=== PATIENT | female | born 1960 | race Caucasian/White ===

== ENCOUNTER 2018-07-16 16:33 | Outpatient (CLI) | payer BC | END 2018-07-16 16:34 | disposition short-term general hospital (02) | LOC: EMS 16:33 | PROVIDERS: ATTEND Surgery | DX: R51 Headache (principal); R11.2 Nausea with vomiting, unspecified; M54.5 Low back pain | CPT/HCPCS: A0425; A0429 ==

== ENCOUNTER 2019-09-05 22:06 | Outpatient (CLI) | payer OTHER | END 2019-09-05 23:59 | disposition critical access hospital (66) | LOC: EMS 22:06 | PROVIDERS: ATTEND Surgery | DX: R11.2 Nausea with vomiting, unspecified (principal); R10.30 Lower abdominal pain, unspecified | CPT/HCPCS: A0425; A0427 ==

== ENCOUNTER 2019-09-05 22:40 | Emergency (ER) | payer OTHER ==
[2019-09-05 22:52] LABS: LEUKOCYTE ESTERASE, URINE LARGE (NEGATIVE); OCCULT BLOOD,URINE MODERATE (NEGATIVE)
[2019-09-05] MEDS ORDERED: MORPHINE 2 MG/ML CARPUJECT IVP STA (22:53)
[2019-09-05] MEDS ORDERED: PROMETHAZINE INJ 25 MG in SODIUM CHLORIDE 0.9% 50 ML IV STA (22:53)
[2019-09-05] MEDS ORDERED: SODIUM CHLORIDE 0.9% 1,000 ML IV STA ×2 (22:53)
--- NOTE | 2019-09-05 22:58 | ED Physician Documentation ---
History of Present Illness - Stated complaint Stated Complaint: AB PX - Chief complaint Chief Complaint: UTI - History obtained from History obtained from: Patient - History of Present Illness Timing: Today Pain level max: 8 Pain level now: 6 - Additonal information Additional information: 59-year-old female presents to the emergency department complaint of lower abdominal pain and vomiting. She states that this started tonight approximately 5 to 6 hours ago. Has gotten gradually worse since that time. Does not have any fevers. States it feels similar to a prior "kidney infection". She states she was septic at that time and spent 3 days at [facility] in [place] last year. She does complain of dysuria. She also has urinary frequency. Nothing makes this better or worse. No changes to her medications. No recent travel. No recent antibiotics. Review of Systems Constitutional: denies: Fever, Chills Throat: denies: Sore throat Cardiac: denies: Chest pain / pressure Respiratory: denies: Cough GI: reports: Abdominal Pain, Nausea, Vomiting Skin: denies: Rash Musculoskeletal: denies: Neck pain, Back pain Neurologic: denies: Headache PD PAST MEDICAL HISTORY - Past Medical History Past Medical History: Yes Cardiovascular: Hypertension - Past Surgical History Past Surgical History: No - Present Medications Home Medications: Ambulatory Orders Medication Instructions Recorded Confirmed Lisinopril [Zestril] 1 tab PO DAILY 09/05/19 09/05/19 Cefdinir 300 mg PO BID #20 capsule 09/06/19 Ondansetron Odt [Zofran] 4 mg TL Q6H PRN #10 tablet 09/06/19 - Allergies Allergies/Adverse Reactions: Allergies Allergy/AdvReac Type Severity Reaction Status Date / Time sulfamethoxazole Allergy Hives Verified 09/05/19 23:24 [From ] trimethoprim [From ] Allergy Hives Verified 09/05/19 23:24 - Living Situation Living Situation: reports: With family Living Arrangement: reports: At home - Social History Does the pt have substance abuse?: No - Family History Family history: reports: Non contributory PD ED PE NORMAL - Vitals Vital signs reviewed: Yes - General General: Alert and oriented X 3, No acute distress, Well developed/nourished - HEENT HEENT: Moist mucous membranes - Neck Neck: Supple, no meningeal sign - Cardiac Cardiac: RRR, Strong equal pulses - Respiratory Respiratory: No respiratory distress, Clear bilaterally - Abdomen Abdomen: Soft, Non tender, Non distended - Derm Derm: Warm and dry - Neuro Neuro: Alert and oriented X 3 - Psych Psych: Normal mood, Normal affect Results - Vitals Vitals: Vital Signs - 24 hr 09/05/19 09/05/19 09/06/19 22:51 23:46 00:38 Temperature 36.9 C Heart Rate 124 H 108 H 99 Respiratory 20 12 Rate Blood Pressure 162/102 H 148/103 H 106/73 O2 Saturation 94 91 L 91 L Oxygen O2 Source Room air - Labs Labs: Laboratory Tests 09/05/19 09/05/19 09/05/19 22:44 22:54 22:54 WBC 14.2 H RBC 4.96 Hgb 14.1 Hct 43.0 MCV 86.7 MCH 28.4 MCHC 32.8 RDW 13.1 Plt Count 281 MPV 8.4 Neut # (Auto) 11.3 H Lymph # (Auto) 1.7 [place] # (Auto) 1.0 Eos # (Auto) 0.1 Baso # (Auto) 0.1 Absolute Nucleated RBC 0.00 Nucleated RBC % 0.0 Sodium 139 Potassium 3.5 Chloride 104 Carbon Dioxide 26 Anion Gap 9.0 BUN 18 Creatinine 0.8 Estimated GFR (MDRD) 74 L Glucose 105 H Lactic Acid Calcium 9.1 Total Bilirubin 0.6 AST 23 ALT 38 Alkaline Phosphatase 75 Total Protein 7.0 Albumin 4.3 Globulin 2.7 Albumin/Globulin Ratio 1.6 Lipase 47 Urine Color ORANGE Urine Clarity HAZY Urine pH Ur Specific [place] Urine Protein Urine Glucose (UA) Urine Ketones Urine Occult Blood MODERATE H Urine Nitrite Urine Bilirubin NEGATIVE Urine Urobilinogen Ur Leukocyte Esterase LARGE H Urine RBC 6-10 H Urine WBC >25 H Ur Squamous Epith Cells RARE Squamous Urine Bacteria Rare Ur Microscopic Review INDICATED Urine Culture Comments INDICATED 09/05/19 22:54 WBC RBC Hgb Hct MCV MCH MCHC RDW Plt Count MPV Neut # (Auto) Lymph # (Auto) [place] # (Auto) Eos # (Auto) Baso # (Auto) Absolute Nucleated RBC Nucleated RBC % Sodium Potassium Chloride Carbon Dioxide Anion Gap BUN Creatinine Estimated GFR (MDRD) Glucose Lactic Acid 1.6 Calcium Total Bilirubin AST ALT Alkaline Phosphatase Total Protein Albumin Globulin Albumin/Globulin Ratio Lipase Urine Color Urine Clarity Urine pH Ur Specific [place] Urine Protein Urine Glucose (UA) Urine Ketones Urine Occult Blood Urine Nitrite Urine Bilirubin Urine Urobilinogen Ur Leukocyte Esterase Urine RBC Urine WBC Ur Squamous Epith Cells Urine Bacteria Ur Microscopic Review Urine Culture Comments - Rads (name of study) CT abdomen pelvis Radiology: Prelim report reviewed, EMP read contemporaneously, See rad report (1. No acute inflammatory or obstructive process seen in the abdomen or pelvis. 2. Colonic diverticulosis. 3. Cholelithiasis. 4. Post hysterectomy. ) PD MEDICAL DECISION MAKING - ED course Complexity details: reviewed results, re-evaluated patient, considered differential, d/w patient ED course: Patient feels much better after IV fluids, pain medication and nausea medication. We will treat as possible early pyelonephritis. No evidence of sepsis. Heart rate down to the 90s. Mild leukocytosis. Normal lactate. Blood cultures were drawn as well. Given IV Rocephin. Patient is well-appearing, nontoxic. Afebrile. Patient counseled regarding signs and symptoms for which I believe and urgent re-evaluation would be necessary. Patient with good understanding of and agreement to plan and is comfortable going home at this time This document was made in part using voice recognition software. While efforts are made to proofread this document, sound alike and grammatical errors may occur. Departure - Departure Disposition: 01 Home, Self Care Clinical Impression: Vomiting Qualifiers: Vomiting type: unspecified Vomiting Intractability: non-intractable Nausea presence: with nausea Qualified Code(s): R11.2 - Nausea with vomiting, unspecified Urinary tract infection Qualifiers: Urinary tract infection type: acute cystitis Hematuria presence: without hematuria Qualified Code(s): N30.00 - Acute cystitis without hematuria Condition: Good Instructions: ED Nausea Vomiting, ED UTI Cystitis Female Follow-Up: your,doctor in 1 week if not better [Other] Prescriptions: Cefdinir 300 mg PO BID #20 capsule Ondansetron Odt [Zofran] 4 mg TL Q6H PRN #10 tablet PRN Reason: Nausea / Vomiting Comments: Take all antibiotics until gone. Return if you worsen. Follow-up with your doctor if not better within 1 week. Return for uncontrolled pain, vomiting and/or fever.
[2019-09-05 23:01] LABS: BASOPHILS # (AUTO) 0.1 10^3/uL (0.0-0.1); BASOPHILS % (AUTO) 0.5 %; EOSINOPHILS # (AUTO) 0.1 10^3/uL (0.0-0.7); EOSINOPHILS % (AUTO) 0.6 %; HGB - HEMOGLOBIN 14.1 g/dL (12.0-16.0); LYMPHOCYTES # (AUTO) 1.7 10^3/uL (1.5-3.5); LYMPHOCYTES % (AUTO) 12.1 %; MEAN CORPUSCULAR HEMOGLOBIN 28.4 pg (27.0-31.0); MEAN CORPUSCULAR HGB CONC 32.8 g/dL (32.0-36.0); MEAN CORPUSCULAR VOLUME 86.7 fL (81.0-99.0); MEAN PLATELET VOLUME 8.4 fL (7.9-10.8); MONOCYTES % (AUTO) 6.8 %; NEUTROPHILS # (AUTO) 11.3 10^3/uL (1.5-6.6); NEUTROPHILS % (AUTO) 79.6 %; PLT - PLATELET COUNT 281 10^3/uL (130-450); RED BLOOD COUNT 4.96 10^6/uL (4.20-5.40); RED CELL DISTRIBUTION WIDTH 13.1 % (12.0-15.0); WHITE BLOOD COUNT 14.2 x10^3/uL (4.8-10.8)
[2019-09-05 23:06] LABS: BILIRUBIN,URINE NEGATIVE (NEGATIVE); CLARITY,URINE HAZY (CLEAR); ICTOTEST,URINE NEGATIVE
[2019-09-05 23:08] LABS: BACTERIA,URINE Rare /HPF (None Seen); SQUAMOUS EPITHELIAL CELL,UR RARE Squamous (<= Few)
[2019-09-05 23:16] LABS: ALBUMIN 4.3 g/dL (3.2-5.5); ALBUMIN/GLOBULIN RATIO 1.6 (1.0-2.2); BILIRUBIN,TOTAL 0.6 mg/dL (0.2-1.0); CALCIUM 9.1 mg/dL (8.5-10.3); CREATININE 0.8 mg/dL (0.4-1.0)
[2019-09-05] MEDS ORDERED: IOVERSOL 320 100 ML VIAL IVP ONE (23:25)
[2019-09-05] MEDS ORDERED: cefTRIAXone 1 GM VIAL IVP STA (23:39)
[2019-09-06] MEDS ORDERED: IOVERSOL 320 100 ML VIAL IVP ONE (00:24)
--- NOTE | 2019-09-06 00:46 | CT Report ---
Reason: lower abd pain, vomiting Procedure Date: 09/06/2019 Accession Number: [id number] / [id number] Procedure: CT - Abdomen/Pelvis W CPT Code: Final Report FULL RESULT: EXAM: CT ABDOMEN AND PELVIS EXAM DATE: 09/06/2019 12:25 AM. CLINICAL HISTORY: Lower abdominal pain, vomiting. COMPARISONS: None. TECHNIQUE: Routine helical CT imaging was performed through the abdomen and pelvis. IV contrast: Yes . Enteric contrast: No . Reconstructions: Coronal and sagittal. In accordance with CT protocol optimization, one or more of the following dose reduction techniques were utilized for this exam: automated exposure control, adjustment of mA and/or KV based on patient size, or use of iterative reconstructive technique. FINDINGS: Lung Bases: Unremarkable. Liver: Unremarkable. No suspicious masses. Gallbladder/Bile Ducts: Cholelithiasis without cholecystitis or biliary ductal dilatation. Spleen: Unremarkable. Pancreas: Unremarkable. Adrenal Glands: Unremarkable. Kidneys: Unremarkable. No suspicious masses or hydronephrosis. Peritoneal Cavity/Bowel: No bowel obstruction or inflammatory process seen. No free air or significant free fluid. No masses or adenopathy. The appendix is normal. No excessive stool burden. Colonic diverticulosis. Pelvic Organs: Post hysterectomy with no adnexal masses seen. The bladder appears within normal limits. Vasculature: No aneurysms or other significant abnormality. Bones: No acute or aggressive appearing abnormality. Mild degenerative anterolisthesis of L4 on L5. Other: None. IMPRESSION: 1. No acute inflammatory or obstructive process seen in the abdomen or pelvis. 2. Colonic diverticulosis. 3. Cholelithiasis. 4. Post hysterectomy. RADIA
[2019-09-06 01:40] VITALS: BP 111/81
== END 2019-09-06 02:02 | disposition home or self-care (01) ==
LOC: EDUNIT# → ED 22:40
DX: N30.00 Acute cystitis without hematuria (principal); B96.20 Unspecified Escherichia coli [E. coli] as the cause of diseases classified elsewhere; R11.2 Nausea with vomiting, unspecified; K80.20 Calculus of gallbladder without cholecystitis without obstruction; I10 Essential (primary) hypertension; Z90.710 Acquired absence of both cervix and uterus
CPT/HCPCS: 36415; 74177; 80053; 81001; 83605; 83690; 85025; 87040; 87086; 87181; 96361; 96365; 96375; 99284; J7040; Q9967; 81003

== ENCOUNTER 2019-09-10 18:20 | Emergency (ER) | payer OTHER ==
[2019-09-10 19:12] LABS: BILIRUBIN,URINE NEGATIVE (NEGATIVE); GLUCOSE, URINE (UA) NEGATIVE (NEGATIVE); KETONES,URINE (UA) NEGATIVE (NEGATIVE); LEUKOCYTE ESTERASE, URINE NEGATIVE (NEGATIVE); NITRITE,URINE NEGATIVE (NEGATIVE); OCCULT BLOOD,URINE NEGATIVE (NEGATIVE); PH,URINE 5.5 PH (5.0-7.5); PROTEIN,URINE NEGATIVE (NEGATIVE); UROBILINOGEN,URINE 0.2 (NORMAL) E.U./dL (NORMAL)
[2019-09-10 19:15] LABS: CLARITY,URINE CLEAR (CLEAR)
[2019-09-10 19:16] LABS: BASOPHILS % (AUTO) 1.2 %; EOSINOPHILS % (AUTO) 1.4 %; HGB - HEMOGLOBIN 13.6 g/dL (12.0-16.0); LYMPHOCYTES % (AUTO) 32.4 %; MEAN CORPUSCULAR HEMOGLOBIN 29.9 pg (27.0-31.0); MEAN CORPUSCULAR HGB CONC 33.3 g/dL (32.0-36.0); MEAN CORPUSCULAR VOLUME 89.9 fL (81.0-99.0); MEAN PLATELET VOLUME 8.3 fL (7.9-10.8); MONOCYTES % (AUTO) 7.3 %; NEUTROPHILS % (AUTO) 57.3 %; PLT - PLATELET COUNT 329 10^3/uL (130-450); RED BLOOD COUNT 4.55 10^6/uL (4.20-5.40); RED CELL DISTRIBUTION WIDTH 13.1 % (12.0-15.0); WHITE BLOOD COUNT 5.1 x10^3/uL (4.8-10.8)
[2019-09-10 19:22] LABS: ABNORMAL LYMPHS % (MANUAL) 0 %
[2019-09-10 19:30] LABS: ALBUMIN 4.1 g/dL (3.2-5.5); ALBUMIN/GLOBULIN RATIO 1.5 (1.0-2.2); BILIRUBIN,TOTAL 0.7 mg/dL (0.2-1.0); CALCIUM 8.8 mg/dL (8.5-10.3); CREATININE 0.9 mg/dL (0.4-1.0); TOTAL PROTEIN 6.9 g/dL (6.7-8.2)
[2019-09-10 19:36] LABS: BAND NEUTROPHILS % (MANUAL) 1 %; BASOPHILS # (MANUAL) 0.1 10^3/uL (0-0.1); BASOPHILS % (MANUAL) 1 %; DIFFERENTIAL COMMENT MANUAL DIFFERENTIAL; EOSINOPHILS # (MANUAL) 0.1 10^3/uL (0-0.7); LYMPHOCYTES % (MANUAL) 40 %; MONOCYTES # (MANUAL) 0.2 10^3/uL (0.0-1.0); PLATELET ESTIMATE, MANUAL NORMAL (130-450,000) (NORMAL); PLATELET MORPHOLOGY NORMAL APPEARANCE (NORMAL); RBC MORPHOLOGY (MULTIPLE) NORMAL APPEARANCE (NORMAL)
[2019-09-10] MEDS ORDERED: ONDANSETRON 4 MG/2 ML VIAL IVP STA (20:01)
[2019-09-10] MEDS ORDERED: MORPHINE 2 MG/ML CARPUJECT IVP STA (20:01)
--- NOTE | 2019-09-10 20:06 | ED Physician Documentation ---
History of Present Illness - Stated complaint Stated Complaint: FEM /ABD PX - Chief complaint Chief Complaint: UTI - History obtained from History obtained from: Patient - History of Present Illness Timing: Today Pain level max: 5 Pain level now: 5 - Additonal information Additional information: 59-year-old female presents to the emergency department stating that she was recently treated for UTI. Changed to nitrofurantoin yesterday. . She states that she is not feeling well today. Just feels generally unwell. Had chills earlier. Now resolved. No fevers. No vomiting. No diarrhea or constipation. Had urosepsis a year ago. Review of Systems Constitutional: reports: Chills. denies: Fever Cardiac: denies: Chest pain / pressure Respiratory: denies: Cough GI: reports: Nausea. denies: Vomiting Skin: denies: Rash Musculoskeletal: denies: Neck pain, Back pain Neurologic: denies: Headache PD PAST MEDICAL HISTORY - Past Medical History Cardiovascular: Hypertension Respiratory: None Neuro: None, Migraines Endocrine/Autoimmune: None GI: GERD BROADBAND ENGINEER: None : Chronic bladder infection HEENT: Dental implants Psych: None Musculoskeletal: Osteoporosis Derm: None - Past Surgical History Past Surgical History: No /BROADBAND ENGINEER: Hysterectomy - Present Medications Home Medications: Ambulatory Orders Medication Instructions Recorded Confirmed Lisinopril [Zestril] 1 tab PO DAILY 09/05/19 09/05/19 Cefdinir 300 mg PO BID #20 capsule 09/06/19 Omeprazole 1 cap PO DAILY 09/06/19 09/06/19 Ondansetron Odt [Zofran] 4 mg TL Q6H PRN #10 tablet 09/06/19 Sumatriptan Succinate [Imitrex] 100 mg PO PRN PRN 09/06/19 09/06/19 Ondansetron Odt [Zofran] 4 mg TL Q6H PRN #10 tablet 09/10/19 - Allergies Allergies/Adverse Reactions: Allergies Allergy/AdvReac Type Severity Reaction Status Date / Time sulfamethoxazole Allergy Hives Verified 09/05/19 23:24 [From ] trimethoprim [From ] Allergy Hives Verified 09/05/19 23:24 - Social History Does the pt smoke?: No Smoking Status: Never smoker Does the pt drink ETOH?: Yes Does the pt have substance abuse?: No - Immunizations Immunizations are current?: Yes - POLST Patient has POLST: No PD ED PE NORMAL - Vitals Vital signs reviewed: Yes - General General: Alert and oriented X 3, No acute distress, Well developed/nourished - HEENT HEENT: Moist mucous membranes - Neck Neck: Supple, no meningeal sign - Cardiac Cardiac: RRR, Strong equal pulses - Respiratory Respiratory: No respiratory distress, Clear bilaterally - Abdomen Abdomen: Soft, Non tender, Non distended - Back Back: No CVA TTP - Derm Derm: Warm and dry - Extremities Extremities: No edema - Neuro Neuro: Alert and oriented X 3 - Psych Psych: Normal mood, Normal affect Results - Vitals Vitals: Vital Signs - 24 hr 09/10/19 09/10/19 09/10/19 18:48 18:51 21:21 Temperature 36.8 C Heart Rate 100 98 73 Respiratory 16 16 18 Rate Blood Pressure 143/98 H 145/89 H 144/85 H O2 Saturation 97 98 97 Oxygen O2 Source Room air - Labs Labs: Laboratory Tests 09/10/19 09/10/19 09/10/19 18:45 18:45 19:02 WBC 5.1 RBC 4.55 Hgb 13.6 Hct 40.9 MCV 89.9 MCH 29.9 MCHC 33.3 RDW 13.1 Plt Count 329 MPV 8.3 Neut # (Auto) Not Reportable Lymph # (Auto) Not Reportable [place] # (Auto) Not Reportable Eos # (Auto) Not Reportable Baso # (Auto) Not Reportable Absolute Nucleated RBC Not Reportable Total Counted 100 Band Neuts % (Manual) 1 Abnorm Lymph % (Manual) 0 Nucleated RBC % Not Reportable Neutrophils # (Manual) 2.8 Lymphocytes # (Manual) 2.0 Monocytes # (Manual) 0.2 Eosinophils # (Manual) 0.1 Basophils # (Manual) 0.1 Differential Comment MANUAL DIFFERENTIAL Manual Slide Review Indicated WBC Morphology NORMAL APPEARANCE Platelet Estimate NORMAL (130-450,000) Platelet Morphology NORMAL APPEARANCE RBC Morph Micro Appear NORMAL APPEARANCE Sodium 140 Potassium 3.7 Chloride 104 Carbon Dioxide 25 Anion Gap 11.0 BUN 17 Creatinine 0.9 Estimated GFR (MDRD) 65 L Glucose 106 H Lactic Acid Calcium 8.8 Total Bilirubin 0.7 AST 22 ALT 29 Alkaline Phosphatase 67 Total Protein 6.9 Albumin 4.1 Globulin 2.8 Albumin/Globulin Ratio 1.5 Lipase 45 Urine Color YELLOW Urine Clarity CLEAR Urine pH 5.5 Ur Specific [place] 1.010 Urine Protein NEGATIVE Urine Glucose (UA) NEGATIVE Urine Ketones NEGATIVE Urine Occult Blood NEGATIVE Urine Nitrite NEGATIVE Urine Bilirubin NEGATIVE Urine Urobilinogen 0.2 (NORMAL) Ur Leukocyte Esterase NEGATIVE Ur Microscopic Review NOT INDICATED Urine Culture Comments NOT INDICATED 09/10/19 19:18 WBC RBC Hgb Hct MCV MCH MCHC RDW Plt Count MPV Neut # (Auto) Lymph # (Auto) [place] # (Auto) Eos # (Auto) Baso # (Auto) Absolute Nucleated RBC Total Counted Band Neuts % (Manual) Abnorm Lymph % (Manual) Nucleated RBC % Neutrophils # (Manual) Lymphocytes # (Manual) Monocytes # (Manual) Eosinophils # (Manual) Basophils # (Manual) Differential Comment Manual Slide Review WBC Morphology Platelet Estimate Platelet Morphology RBC Morph Micro Appear Sodium Potassium Chloride Carbon Dioxide Anion Gap BUN Creatinine Estimated GFR (MDRD) Glucose Lactic Acid 1.1 Calcium Total Bilirubin AST ALT Alkaline Phosphatase Total Protein Albumin Globulin Albumin/Globulin Ratio Lipase Urine Color Urine Clarity Urine pH Ur Specific [place] Urine Protein Urine Glucose (UA) Urine Ketones Urine Occult Blood Urine Nitrite Urine Bilirubin Urine Urobilinogen Ur Leukocyte Esterase Ur Microscopic Review Urine Culture Comments PD MEDICAL DECISION MAKING - ED course Complexity details: reviewed old records, reviewed results, re-evaluated patient, considered differential, d/w patient ED course: Patient is well-appearing, nontoxic. Afebrile. Labs are normal. No UTI on urinalysis. Pain and nausea well controlled. Unclear etiology of her symptoms. Had a CT scan 5 days ago, we will not repeat this at this time given her benign exam. No leukocytosis. Normal lactate. We will have her continue her antibiotics and follow-up with her doctor. Patient counseled regarding signs and symptoms for which I believe and urgent re-evaluation would be necessary. Patient with good understanding of and agreement to plan and is comfortable going home at this time This document was made in part using voice recognition software. While efforts are made to proofread this document, sound alike and grammatical errors may occur. Departure - Departure Disposition: 01 Home, Self Care Clinical Impression: Urinary tract infection Qualifiers: Urinary tract infection type: acute cystitis Hematuria presence: without hematuria Qualified Code(s): N30.00 - Acute cystitis without hematuria Condition: Good Instructions: ED UTI Cystitis Female Follow-Up: your,doctor in 3 days. [Other] Prescriptions: Ondansetron Odt [Zofran] 4 mg TL Q6H PRN #10 tablet PRN Reason: Nausea / Vomiting Comments: The cause of your symptoms is unclear today. Follow-up with your doctor for further care. Your laboratory testing is improved and your urinalysis does not show any further infection. Finish the antibiotics that were previously given to you. Discharge Date/Time: 09/10/19 21:21
[2019-09-10 21:21] VITALS: BP 144/85
== END 2019-09-10 21:21 | disposition home or self-care (01) ==
LOC: ED 18:20
DX: N30.00 Acute cystitis without hematuria (principal); R11.0 Nausea; I10 Essential (primary) hypertension
CPT/HCPCS: 36415; 80053; 81001; 81003; 83605; 83690; 85025; 87086; 96374; 99284

== ENCOUNTER 2019-10-20 12:26 | Outpatient (CLI) | payer OTHER | END 2019-10-20 12:27 | disposition critical access hospital (66) | LOC: EMS 12:26 | PROVIDERS: ATTEND Surgery | DX: R11.2 Nausea with vomiting, unspecified (principal); R19.7 Diarrhea, unspecified; R30.9 Painful micturition, unspecified; R53.1 Weakness | CPT/HCPCS: A0425; A0427 ==

== ENCOUNTER 2019-10-20 13:02 | Emergency (ER) | payer OTHER ==
[2019-10-20] MEDS ORDERED: SODIUM CHLORIDE 0.9% 1,000 ML IV STA ×3 (13:24→13:30)
[2019-10-20] MEDS ORDERED: MORPHINE 2 MG/ML CARPUJECT IVP STA (13:29)
[2019-10-20] MEDS ORDERED: PROMETHAZINE INJ 25 MG in SODIUM CHLORIDE 0.9% 50 ML IV STA (13:30)
--- NOTE | 2019-10-20 13:34 | ED Physician Documentation ---
PD HPI ABD PAIN - Stated complaint Stated Complaint: N/V/D - Chief complaint Chief Complaint: Abd Pain - History obtained from History obtained from: Patient - History of Present Illness Timing - onset: How many days ago (4-5) Timing - duration: Days Timing - details: Gradual onset Pain level max: 8 Pain level now: 8 Quality: Cramping, Aching, Pain Location: All over / everywhere Improved by: Vomiting Worsened by: Eating Associated symptoms: Nausea, Vomiting, Diarrhea (Patient states she had mild diarrhea through the week, increased today.), Dysuria. No: Fever, Melena, He matochezia, Hematuria, Chest pain, Dizzy Similar symptoms before: Diagnosis (UTI, urosepsis) Recently seen: Not recently seen Review of Systems Ten Systems: 10 systems reviewed and negative Constitutional: reports: Fever (today). denies: Chills Eyes: denies: Decreased vision, Photophobia Ears: denies: Ear pain Nose: denies: Rhinorrhea / runny nose, Congestion Throat: denies: Sore throat Respiratory: denies: Cough GI: reports: Nausea, Vomiting, Diarrhea. 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 : Chronic bladder infection HEENT: Dental implants Psych: None Musculoskeletal: Osteoporosis Derm: None - Past Surgical History Past Surgical History: No /CLERK CARRIER: Hysterectomy - Present Medications Home Medications: Ambulatory Orders Medication Instructions Recorded Confirmed Lisinopril [Zestril] 1 tab PO DAILY 09/05/19 09/05/19 Cefdinir 300 mg PO BID #20 capsule 09/06/19 Omeprazole 1 cap PO DAILY 09/06/19 09/06/19 Ondansetron Odt [Zofran] 4 mg TL Q6H PRN #10 tablet 09/06/19 Sumatriptan Succinate [Imitrex] 100 mg PO PRN PRN 09/06/19 09/06/19 Ondansetron Odt [Zofran] 4 mg TL Q6H PRN #10 tablet 09/10/19 Hydrocodone/Acetaminophen 1 - 2 each PO Q6H PRN #14 tablet 10/20/19 [Hydrocodon-Acetaminophen 5-325] Promethazine [Phenergan] 25 mg PO Q6H PRN #10 tab 10/20/19 - Allergies Allergies/Adverse Reactions: Allergies Allergy/AdvReac Type Severity Reaction Status Date / Time sulfamethoxazole Allergy Hives Verified 10/20/19 13:14 [From ] trimethoprim [From ] Allergy Hives Verified 10/20/19 13:14 - Social History Does the pt smoke?: No Smoking Status: Never smoker Does the pt drink ETOH?: Yes Does the pt have substance abuse?: No - Immunizations Immunizations are current?: Yes - POLST Patient has POLST: No PD ED PE NORMAL - Vitals Vital signs reviewed: Yes - General General: Alert and oriented X 3, No acute distress, Well developed/nourished - HEENT HEENT: PERRL, Other (Dry lips and tongue) - Neck Neck: Supple, no meningeal sign - Cardiac Cardiac: RRR, Strong equal pulses - Respiratory Respiratory: No respiratory distress, Clear bilaterally - Abdomen Abdomen: Soft, Non tender, Non distended - Back Back: No spinal TTP, Other (Right-sided CVA tenderness) - Derm Derm: Warm and dry - Extremities Extremities: No edema, No calf tenderness / cord - Neuro Neuro: Alert and oriented X 3 - Psych Psych: Normal mood, Normal affect Results - Vitals Vitals: Vital Signs - 24 hr 10/20/19 10/20/19 10/20/19 13:10 15:00 17:00 Temperature 37.8 C H 37.7 C H Heart Rate 110 H 111 H 106 H Respiratory 20 21 20 Rate Blood Pressure 159/105 H 161/111 H 140/102 H O2 Saturation 100 100 100 10/20/19 18:16 Temperature 37.7 C H Heart Rate 104 H Respiratory 21 Rate Blood Pressure 122/99 H O2 Saturation 100 Oxygen O2 Source Room air - Labs Labs: Laboratory Tests 10/20/19 10/20/19 10/20/19 13:10 13:40 13:40 WBC 10.0 RBC 5.23 Hgb 15.3 Hct 47.1 H MCV 90.1 MCH 29.3 MCHC 32.5 RDW 12.5 Plt Count 242 MPV 8.5 Neut # (Auto) 9.0 H Lymph # (Auto) 0.3 L [place] # (Auto) 0.6 Eos # (Auto) 0.0 Baso # (Auto) 0.0 Absolute Nucleated RBC 0.00 Nucleated RBC % 0.0 Sodium 141 Potassium 3.9 Chloride 103 Carbon Dioxide 26 Anion Gap 12.0 BUN 18 Creatinine 0.8 Estimated GFR (MDRD) 74 L Glucose 116 H Lactic Acid Calcium 9.3 Phosphorus 3.5 Magnesium 1.8 Total Bilirubin 1.2 H AST 22 ALT 28 Alkaline Phosphatase 62 Total Protein 7.3 Albumin 5.4 Globulin 1.9 L Albumin/Globulin Ratio 2.8 H Lipase 44 Urine Color YELLOW Urine Clarity CLEAR Urine pH 5.5 Ur Specific [place] >=1.030 H Urine Protein NEGATIVE Urine Glucose (UA) NEGATIVE Urine Ketones TRACE Urine Occult Blood NEGATIVE Urine Nitrite NEGATIVE Urine Bilirubin NEGATIVE Urine Urobilinogen 0.2 (NORMAL) Ur Leukocyte Esterase NEGATIVE Ur Microscopic Review NOT INDICATED Urine Culture Comments NOT INDICATED 10/20/19 13:40 WBC RBC Hgb Hct MCV MCH MCHC RDW Plt Count MPV Neut # (Auto) Lymph # (Auto) [place] # (Auto) Eos # (Auto) Baso # (Auto) Absolute Nucleated RBC Nucleated RBC % Sodium Potassium Chloride Carbon Dioxide Anion Gap BUN Creatinine Estimated GFR (MDRD) Glucose Lactic Acid 1.5 Calcium Phosphorus Magnesium Total Bilirubin AST ALT Alkaline Phosphatase Total Protein Albumin Globulin Albumin/Globulin Ratio Lipase Urine Color Urine Clarity Urine pH Ur Specific [place] Urine Protein Urine Glucose (UA) Urine Ketones Urine Occult Blood Urine Nitrite Urine Bilirubin Urine Urobilinogen Ur Leukocyte Esterase Ur Microscopic Review Urine Culture Comments - Rads (name of study) CT abd/pelvis Radiology: Prelim report reviewed, EMP read contemporaneously, See rad report (intestinal obstruction or perforation is seen. There is a finding of relatively radiolucent gallstones within the gallbladder lumen, but no evidence of acute cholecystitis is seen.The source of current abdominal pain and emesis is not found. ) PD MEDICAL DECISION MAKING - ED course Complexity details: reviewed results, re-evaluated patient, considered differential, d/w patient ED course: 59-year-old female with abdominal pain. Unclear etiology. She is not tender in the right upper quadrant. Exam is not consistent with cholecystitis. No diverticulitis or colitis on CT scan. Likely that this is a viral gastroenteritis. She was unable to produce any stool samples here. No diarrhea in the emergency department. Tolerating p.o. without difficulty and feels better after IV fluids. We will continue supportive care and have her follow-up closely with her doctor. Patient counseled regarding signs and symptoms for which I believe and urgent re-evaluation would be necessary. Patient with good understanding of and agreement to plan and is comfortable going home at this time This document was made in part using voice recognition software. While efforts are made to proofread this document, sound alike and grammatical errors may occur. Departure - Departure Disposition: Home, Self Care Clinical Impression: Viral gastroenteritis Condition: Good Instructions: ED Gastroenteritis Viral Follow-Up: your,doctor on Wednesday or Wednesday [Other] Prescriptions: Hydrocodone/Acetaminophen [Hydrocodon-Acetaminophen 5-325] 1 - 2 each PO Q6H PRN #14 tablet PRN Reason: pain Promethazine [Phenergan] 25 mg PO Q6H PRN #10 tab PRN Reason: Nausea / Vomiting Comments: Return if you worsen. Drink plenty of fluids at home. There are no acute findings on your laboratory testing or CT scan. We were unable to obtain a stool sample today, if your symptoms continue, this can be ordered by your doctor. This is likely a viral illness. Do not drink alcohol or drive while on narcotic pain medicine. Note that many narcotic pain relievers also contain tylenol/acetaminophen. Please ensure that your total dose of acetaminophen from all sources does not exceed 3 grams (3000mg) per day. You may constipated on this medication, take a stool softener such as "Colace" twice a day while you are on it. Also recommend a [id number] laxative such as senna or MiraLAX any day that you do not have a bowel movement. If you received narcotic pain medication in the emergency department, do not drive or operate machinery for the next 24 hours. Discharge Date/Time: 10/20/19 18:36
[2019-10-20] MEDS ORDERED: IOVERSOL 320 100 ML VIAL IVP ONE ×2 (13:41→14:32)
[2019-10-20 13:42] LABS: BILIRUBIN,URINE NEGATIVE (NEGATIVE); GLUCOSE, URINE (UA) NEGATIVE (NEGATIVE); KETONES,URINE (UA) TRACE mg/dL (NEGATIVE); LEUKOCYTE ESTERASE, URINE NEGATIVE (NEGATIVE); NITRITE,URINE NEGATIVE (NEGATIVE); OCCULT BLOOD,URINE NEGATIVE (NEGATIVE); PH,URINE 5.5 PH (5.0-7.5); PROTEIN,URINE NEGATIVE (NEGATIVE); UROBILINOGEN,URINE 0.2 (NORMAL) E.U./dL (NORMAL)
[2019-10-20 13:45] LABS: CLARITY,URINE CLEAR (CLEAR)
[2019-10-20 13:46] LABS: BASOPHILS % (AUTO) 0.4 %; EOSINOPHILS % (AUTO) 0.4 %; HGB - HEMOGLOBIN 15.3 g/dL (12.0-16.0); LYMPHOCYTES # (AUTO) 0.3 10^3/uL (1.5-3.5); LYMPHOCYTES % (AUTO) 3.3 %; MEAN CORPUSCULAR HEMOGLOBIN 29.3 pg (27.0-31.0); MEAN CORPUSCULAR HGB CONC 32.5 g/dL (32.0-36.0); MEAN CORPUSCULAR VOLUME 90.1 fL (81.0-99.0); MEAN PLATELET VOLUME 8.5 fL (7.9-10.8); MONOCYTES # (AUTO) 0.6 10^3/uL (0.0-1.0); MONOCYTES % (AUTO) 5.6 %; NEUTROPHILS % (AUTO) 89.9 %; PLT - PLATELET COUNT 242 10^3/uL (130-450); RED BLOOD COUNT 5.23 10^6/uL (4.20-5.40); RED CELL DISTRIBUTION WIDTH 12.5 % (12.0-15.0)
[2019-10-20 14:02] LABS: ALBUMIN 5.4 g/dL (3.2-5.5); ALBUMIN/GLOBULIN RATIO 2.8 (1.0-2.2); BILIRUBIN,TOTAL 1.2 mg/dL (0.2-1.0); CALCIUM 9.3 mg/dL (8.5-10.3); CREATININE 0.8 mg/dL (0.4-1.0); MAGNESIUM 1.8 mg/dL (1.7-2.8); PHOSPHORUS 3.5 mg/dL (2.5-4.6); TOTAL PROTEIN 7.3 g/dL (6.7-8.2)
--- NOTE | 2019-10-20 14:52 | CT Report ---
PROCEDURE: Abdomen/Pelvis W INDICATIONS: diffuse abd pain, vomiting. CONTRAST: IV CONTRAST: Optiray 320 ml: 100 PO CONTRAST: *NO PO CONTRAST TECHNIQUE: After the administration of oral and intravenous contrast, 5 mm thick sections acquired from the diap hragms to the symphysis. 5 mm thick coronal and sagittal reformats were acquired. For radiation dos e reduction, the following was used: automated exposure control, adjustment of mA and/or kV accordin g to patient size. COMPARISON: Prior similar CT 09/06/2019. FINDINGS: Image quality: Excellent. ABDOMEN: Lung bases: Lung bases are clear. Heart size is normal. Solid organs: Liver and spleen are normal in size and enhancement. Gallbladder contains small to mo derate sized radiolucent gallstones which are not associated with definite gallbladder wall inflammat ion and adjacent biliary distention. Pancreas enhances normally. No adrenal nodules. Kidneys demons trate normal size and enhancement, without hydronephrosis. Peritoneum and bowel: Bowel loops demonstrate normal wall thickness and caliber. No free fluid or a ir. Nodes and vessels: No retroperitoneal or mesenteric adenopathy by size criteria. Aorta and inferior vena cava are normal in size. Miscellaneous: No ventral hernias. PELVIS: Genitourinary: Bladder wall thickness is normal. Miscellaneous: No inguinal hernias or adenopathy. Mild diverticulosis is noted but no acute diverti culitis is found. A normal or abnormal appendix could not be located. Bones: No suspicious bony lesions. No vertebral body compression fractures. IMPRESSION: No intestinal obstruction or perforation is seen. There is a finding of relatively radio lucent gallstones within the gallbladder lumen, but no evidence of acute cholecystitis is seen. The s ource of current abdominal pain and emesis is not found. Reviewed by: Salomon Anguiano MD on 10/20/2019 2:50 PM PDT Approved by: Salomon Anguiano MD on 10/20/2019 2:50 PM PDT Station ID: [id number]
[2019-10-20 18:17] VITALS: BP 122/99
== END 2019-10-20 18:36 | disposition home or self-care (01) ==
LOC: EDUNIT# → ED 13:02
DX: A08.4 Viral intestinal infection, unspecified (principal); K80.20 Calculus of gallbladder without cholecystitis without obstruction; I10 Essential (primary) hypertension
CPT/HCPCS: 36415; 74177; 80053; 81003; 83605; 83690; 83735; 84100; 85025; 87040; 96361; 96365; 96375; 99284; 99285; J7040; Q9967; 81001; 87086

== ENCOUNTER 2020-05-08 15:11 | Outpatient (CLI) | payer OTHER ==
--- NOTE | 2020-05-09 09:00 | Mammography Report ---
BILATERAL DIGITAL SCREENING MAMMOGRAM 3D/2D: 05/08/2020 CLINICAL: Routine screening. Comparison is made to exams dated: 10/24/2018 mammogram, 04/20/2017 mammogram, and 03/17/2016 mammogram - [facility]. The tissue of both breasts is predominantly fatty. No significant masses, calcifications, or other findings are seen in either breast. There has been no significant interval change. IMPRESSION: NEGATIVE There is no mammographic evidence of malignancy. A 1 year screening mammogram is recommended. This exam was interpreted at Station ID: [id number]. NOTE: For mammograms, a report in lay terms will be sent to the patient. Approximately 15% of breast malignancies will not be visualized mammographically. In the management of a palpable breast mass, a negative mammogram must not discourage biopsy of a clinically suspicious lesion. Electronically Signed By: Burak Gee M.D., jr/jaspal:05/08/2020 16:38:28 ACR BI-RADS Category 1: Negative 3341F PARENCHYMAL PATTERN: (F) - The breast(s) demonstrate(s) diffuse fatty replacement. BI-RADS CATEGORY: (1) - 1 RECOMMENDATION: (ANNUAL) - Recommend routine annual screening mammography. [id number] 1 year screening LATERALITY: (B)
== END 2020-05-08 15:12 | disposition home or self-care (01) ==
LOC: DI.S 15:11
PROVIDERS: ATTEND Registered Nurse
DX: Z12.31 Encounter for screening mammogram for malignant neoplasm of breast (principal)

== ENCOUNTER 2020-09-13 08:00 | Outpatient (CLI) | payer OTHER ==
[2020-09-13 15:15] LABS: BILIRUBIN,URINE NEGATIVE (NEGATIVE); GLUCOSE, URINE (UA) NEGATIVE (NEGATIVE); KETONES,URINE (UA) NEGATIVE (NEGATIVE); LEUKOCYTE ESTERASE, URINE SMALL (NEGATIVE); NITRITE,URINE POSITIVE (NEGATIVE); OCCULT BLOOD,URINE TRACE-INTA (NEGATIVE); PH,URINE 5.5 PH (5.0-7.5); PROTEIN,URINE NEGATIVE (NEGATIVE); UROBILINOGEN,URINE 0.2 (NORMAL) E.U./dL (NORMAL)
[2020-09-13 15:22] LABS: BACTERIA,URINE Moderate /HPF (None Seen); CLARITY,URINE CLEAR (CLEAR); RBC,URINE 0-5 /HPF (0-5); SQUAMOUS EPITHELIAL CELL,UR FEW Squamous (<= Few)
== END 2020-09-13 23:59 | disposition home or self-care (01) ==
LOC: LAB.S 08:00
PROVIDERS: ATTEND Emergency Medicine
DX: R30.0 Dysuria (principal)
CPT/HCPCS: 81001; 87086; 87181

== ENCOUNTER 2020-11-02 08:00 | Outpatient (CLI) | payer OTHER ==
[2020-11-02 15:57] LABS: BILIRUBIN,URINE NEGATIVE (NEGATIVE); GLUCOSE, URINE (UA) NEGATIVE (NEGATIVE); KETONES,URINE (UA) 15 mg/dL (NEGATIVE); LEUKOCYTE ESTERASE, URINE SMALL (NEGATIVE); NITRITE,URINE NEGATIVE (NEGATIVE); OCCULT BLOOD,URINE NEGATIVE (NEGATIVE); PROTEIN,URINE NEGATIVE (NEGATIVE); UROBILINOGEN,URINE 0.2 (NORMAL) E.U./dL (NORMAL)
[2020-11-02 16:00] LABS: CLARITY,URINE HAZY (CLEAR)
[2020-11-02 16:24] LABS: BACTERIA,URINE Few /HPF (None Seen); RBC,URINE None Seen /HPF (0-5); SQUAMOUS EPITHELIAL CELL,UR NONE SEEN (<= Few)
== END 2020-11-02 23:59 | disposition home or self-care (01) ==
LOC: LAB.S 08:00
PROVIDERS: ATTEND Emergency Medicine
DX: R30.0 Dysuria (principal)
CPT/HCPCS: 81001; 81003; 87086; 87181

== ENCOUNTER 2020-11-17 07:00 | Outpatient (CLI) | payer OTHER | END 2020-11-17 23:59 | disposition home or self-care (01) | LOC: LAB.R 07:00 | PROVIDERS: ATTEND Physician Assistant Medical | DX: N30.90 Cystitis, unspecified without hematuria (principal) | CPT/HCPCS: 87077; 87086; 87181 ==

== ENCOUNTER 2021-03-13 15:19 | Outpatient (CLI) | payer OTHER ==
--- NOTE | 2021-03-14 08:38 | Ultrasound Report ---
PROCEDURE: Retroperitoneal INDICATIONS: RECURRENT UTIs TECHNIQUE: Real-time scanning was performed of the retroperitoneal organs, with image documentation. COMPARISON: Reference is made to the CT abdomen dated October 20, 2019. FINDINGS: RIGHT KIDNEY: Measures 12 cm in length. The renal cortex thickness measures 1.2 cm. Normal contour with mildly increased medullary echogenicity. Preservation of the cortical thickness a nd cortical medullary differentiation. No hydronephrosis. LEFT KIDNEY: Measures 11.5 cm in length. The renal cortex thickness measures 1.4 cm. Normal contour with mildly increased medullary echogenicity. Preservation of the cortical thickness a nd cortical medullary differentiation. No hydronephrosis. Parapelvic hypoechoic areas are seen, likel y reflecting parapelvic cysts. URINARY BLADDER: Prevoid volume: 117 mL. Post void volume: 4.9 mL. Both ureteral jets are visualized. OTHER: None. IMPRESSION: 1.Bilateral mildly increased medullary echogenicity, which is nonspecific but can be seen in the sett ing of medical renal disease. Reviewed by: Tino Fischer MD on 03/14/2021 8:36 AM PST Approved by: Tino Fischer MD on 03/14/2021 8:36 AM PST Station ID: [id number]
== END 2021-03-13 15:20 | disposition home or self-care (01) ==
LOC: DI 15:19
PROVIDERS: ATTEND Physician Assistant
DX: N39.0 Urinary tract infection, site not specified (principal); R93.422 Abnormal radiologic findings on diagnostic imaging of left kidney; R93.421 Abnormal radiologic findings on diagnostic imaging of right kidney

== ENCOUNTER 2021-10-17 08:00 | Outpatient (CLI) | payer OTHER | END 2021-10-17 23:59 | disposition home or self-care (01) | LOC: LAB 08:00 | PROVIDERS: ATTEND Internal Medicine | DX: R30.0 Dysuria (principal) | CPT/HCPCS: 87086 ==

== ENCOUNTER 2021-12-17 08:00 | Outpatient (CLI) | payer OTHER ==
[2021-12-17 19:53] LABS: BILIRUBIN,URINE NEGATIVE (NEGATIVE); GLUCOSE, URINE (UA) NEGATIVE (NEGATIVE); KETONES,URINE (UA) NEGATIVE (NEGATIVE); LEUKOCYTE ESTERASE, URINE NEGATIVE (NEGATIVE); NITRITE,URINE NEGATIVE (NEGATIVE); OCCULT BLOOD,URINE NEGATIVE (NEGATIVE); PROTEIN,URINE NEGATIVE (NEGATIVE); UROBILINOGEN,URINE 0.2 (NORMAL) E.U./dL (NORMAL)
[2021-12-17 19:54] LABS: CLARITY,URINE CLEAR (CLEAR)
[2021-12-17 20:06] LABS: BACTERIA,URINE None Seen /HPF (None Seen); RBC,URINE None Seen /HPF (0-5); SQUAMOUS EPITHELIAL CELL,UR FEW Squamous (<= Few); WBC,URINE 0-3 /HPF (0-5)
== END 2021-12-17 23:59 | disposition home or self-care (01) ==
LOC: LAB.S 08:00
PROVIDERS: ATTEND Emergency Medicine
DX: N30.90 Cystitis, unspecified without hematuria (principal)
CPT/HCPCS: 81001; 87086

== ENCOUNTER 2022-08-13 10:09 | Outpatient (CLI) | payer OTHER ==
--- NOTE | 2022-08-14 10:18 | Mammography Report ---
BILATERAL DIGITAL SCREENING MAMMOGRAM 3D/2D: 08/13/2022 CLINICAL: Routine screening. Comparison is made to exams dated: 05/08/2020 mammogram - [facility], 10/24/2018 [facility], and 04/20/2017 mammogram - [facility]. Both breasts are almost entirely fatty (category a/<25% glandular tissue). No significant masses, calcifications, or other findings are seen in either breast. There has been no significant interval change. IMPRESSION: NEGATIVE There is no mammographic evidence of malignancy. A 1 year screening mammogram is recommended. Based on the Tyrer Cuzick model (a risk assessment model) the patients lifetime risk is 5.4% and her 10 year risk is 2.2%. According to the ACR, ACS, and NCCN guidelines, an annual breast MRI exam [place] g with mammogram is recommended if the patients lifetime risk is 20% or greater. This exam was interpreted at Station ID: [id number]. NOTE: For mammograms, a report in lay terms will be sent to the patient. Approximately 15% of breast malignancies will not be visualized mammographically. In the management of a palpable breast mass, a negative mammogram must not discourage biopsy of a clinically suspicious lesion. Electronically Signed By: Ann Marie asher/jaspal:08/13/2022 15:32:42 letter sent: No_Letter ACR BI-RADS Category 1: Negative 3341F PARENCHYMAL PATTERN: (F) - The breast(s) demonstrate(s) diffuse fatty replacement. BI-RADS CATEGORY: (1) - 1 Mammogram [id number] 1 year screening LATERALITY: (B)
== END 2022-08-13 10:10 | disposition home or self-care (01) ==
LOC: DI.S 10:09
DX: Z12.31 Encounter for screening mammogram for malignant neoplasm of breast (principal)

== ENCOUNTER 2023-01-17 11:17 | Emergency (ER) | payer OTHER ==
[2023-01-17 12:17] LABS: BILIRUBIN,URINE NEGATIVE (NEGATIVE); GLUCOSE, URINE (UA) NEGATIVE (NEGATIVE); KETONES,URINE (UA) NEGATIVE (NEGATIVE); LEUKOCYTE ESTERASE, URINE SMALL (NEGATIVE); NITRITE,URINE NEGATIVE (NEGATIVE); OCCULT BLOOD,URINE NEGATIVE (NEGATIVE); PROTEIN,URINE NEGATIVE (NEGATIVE); UROBILINOGEN,URINE 0.2 (NORMAL) E.U./dL (NORMAL)
[2023-01-17 12:24] LABS: CLARITY,URINE CLEAR (CLEAR)
[2023-01-17 12:25] LABS: BACTERIA,URINE Few /HPF (None Seen); MUCUS,URINE Few Strands; RBC,URINE 0-5 /HPF (0-5); SQUAMOUS EPITHELIAL CELL,UR FEW Squamous (<= Few)
[2023-01-17] MEDS ORDERED: cephALEXin 250 MG CAPSULE PO STA (12:44)
--- NOTE | 2023-01-17 12:47 | ED Physician Documentation ---
History of Present Illness - Stated complaint Stated Complaint: - Chief complaint Chief Complaint: Abd Pain - Additonal information Additional information: 8-year-old female presents emergency department for evaluation of 3 days dysuria urgency and frequency. Denies fevers, flank pain or vomiting. Does have a history of UTI and this feels similar. She did take an Azo test strip at home which was both nitrate and LE positive. Review of Systems Constitutional: denies: Fever GI: reports: Reviewed and negative : reports: Dysuria, Frequency. denies: Hematuria Skin: reports: Reviewed and negative Musculoskeletal: reports: Reviewed and negative PD PAST MEDICAL HISTORY - Past Medical History Cardiovascular: Hypertension Respiratory: None Neuro: None, Migraines Endocrine/Autoimmune: None GI: GERD EAP COUNSELOR: None : Chronic bladder infection HEENT: Dental implants Psych: None Musculoskeletal: Osteoporosis Derm: None - Past Surgical History Past Surgical History: No /EAP COUNSELOR: Hysterectomy - Present Medications Home Medications: Ambulatory Orders Medication Instructions Recorded Confirmed Lisinopril [Zestril] 1 tab PO DAILY 09/05/19 09/05/19 Cefdinir 300 mg PO BID #20 capsule 09/06/19 Omeprazole 1 cap PO DAILY 09/06/19 09/06/19 Ondansetron Odt [Zofran] 4 mg TL Q6H PRN #10 tablet 09/06/19 Sumatriptan Succinate [Imitrex] 100 mg PO PRN PRN 09/06/19 09/06/19 Ondansetron Odt [Zofran] 4 mg TL Q6H PRN #10 tablet 09/10/19 Hydrocodone/Acetaminophen 1 - 2 each PO Q6H PRN #14 tablet 10/20/19 [Hydrocodon-Acetaminophen 5-325] Promethazine [Phenergan] 25 mg PO Q6H PRN #10 tab 10/20/19 cephALEXin [Keflex] 500 mg PO BID #14 cap 01/17/23 - Allergies Allergies/Adverse Reactions: Allergies Allergy/AdvReac Type Severity Reaction Status Date / Time sulfamethoxazole Allergy Hives Verified 01/17/23 11:43 [From ] trimethoprim [From ] Allergy Hives Verified 01/17/23 11:43 - Social History Does the pt smoke?: No Smoking Status: Never smoker Does the pt drink ETOH?: Yes Does the pt have substance abuse?: No - Immunizations Immunizations are current?: Yes - POLST Patient has POLST: No PD ED PE NORMAL - General General: Alert and oriented X 3, No acute distress - HEENT HEENT: Atraumatic - Neck Neck: Supple, no meningeal sign, No adenopathy - Cardiac Cardiac: RRR, No murmur - Abdomen Abdomen: Normal bowel sounds, Non tender Results - Vitals Vitals: Vital Signs - 24 hr 01/17/23 11:41 Temperature 36.4 C L Heart Rate 101 H Respiratory 18 Rate Blood Pressure 130/97 H O2 Saturation 99 Oxygen O2 Source Room air - Labs Labs: Laboratory Tests 01/17/23 11:43 Urine Color YELLOW Urine Clarity CLEAR Urine pH 7.0 Ur Specific [place] 1.010 Urine Protein NEGATIVE Urine Glucose (UA) NEGATIVE Urine Ketones NEGATIVE Urine Occult Blood NEGATIVE Urine Nitrite NEGATIVE Urine Bilirubin NEGATIVE Urine Urobilinogen 0.2 (NORMAL) Ur Leukocyte Esterase SMALL H Urine RBC 0-5 Urine WBC 6-10 H Ur Squamous Epith Cells FEW Squamous Urine Bacteria Few Urine Mucus Few Strands Ur Microscopic Review INDICATED Urine Culture Comments INDICATED PD Medical Decision Making - ED course Complexity details: reviewed results, re-evaluated patient, d/w patient ED course: 62-year-old female here with 3 days of dysuria urgency and frequency. UA today is LE positive with few bacteria. Meets the culture threshold. Given the symptoms we will treat empirically with Keflex twice daily for a week. No evidence on evaluation of a sending infection or pyelonephritis. The usual emergent return precautions for worsening symptoms was discussed. Departure - Departure Disposition: 01 Home, Self Care Clinical Impression: Acute cystitis Qualifiers: Hematuria presence: without hematuria Qualified Code(s): N30.00 - Acute cystitis without hematuria Condition: Stable Prescriptions: cephALEXin [Keflex] 500 mg PO BID #14 cap Comments: Vanesa, your symptoms are very consistent with urinary tract infections. Your urine today does suggest an early infection. A culture is pending. In the short-term we will start you on Keflex 500 mg twice daily for the next week. With the first few doses of antibiotics I would expect your symptoms to be markedly improving. Return to the ER if you develop low back pain, fevers have uncontrolled vomiting or any concerns of worsening infection. We will notify you if the urine culture is not sensitive to the antibiotics we have chosen today.
[2023-01-17 13:03] VITALS: BP 128/88; O2SAT 100
--- NOTE | 2023-01-19 22:34 | ED Physician Documentation ---
ED Addendum - Addendum Addendum: 01/19/23 22:33 Urine culture returned E. coli, ESBL producing. It is resistant to cefazolin. Will change to Macrobid. Departure - Departure Disposition: Home, Self Care Clinical Impression: Acute cystitis Qualifiers: Hematuria presence: without hematuria Qualified Code(s): N30.00 - Acute cystitis without hematuria Condition: Stable Instructions: ED UTI Cystitis Female Prescriptions: cephALEXin [Keflex] 500 mg PO BID #14 cap Nitrofurantoin [Macrobid] 100 mg PO BID #10 cap Comments: Vanesa, your symptoms are very consistent with urinary tract infections. Your urine today does suggest an early infection. A culture is pending. In the short-term we will start you on Keflex 500 mg twice daily for the next week. With the first few doses of antibiotics I would expect your symptoms to be markedly improving. Return to the ER if you develop low back pain, fevers have uncontrolled vomiting or any concerns of worsening infection. We will notify you if the urine culture is not sensitive to the antibiotics we have chosen today. Forms: PCP List Discharge Date/Time: 01/17/23 12:57
== END 2023-01-17 12:57 | disposition home or self-care (01) ==
LOC: ED 11:17
DX: N30.00 Acute cystitis without hematuria (principal)
CPT/HCPCS: 81001; 87086; 87181; 99283; A9270; 81003

== ENCOUNTER 2023-07-23 08:00 | Outpatient (CLI) | payer OTHER | END 2023-07-23 23:59 | disposition home or self-care (01) | LOC: LAB.R 08:00 | PROVIDERS: ATTEND Physician Assistant Medical | DX: N30.90 Cystitis, unspecified without hematuria (principal) | CPT/HCPCS: 87086 ==